=== PATIENT | female | born 1940 | race Caucasian/White ===

== ENCOUNTER 2020-02-28 07:17 | Outpatient (CLI) | payer MEDICARE, BC ==
[~2020-02-28] VITALS: Ht 157.5 cm; Wt 93.6 kg
[2020-02-28 07:40] VITALS: BP 121/58; PULSE 78; TEMP 98.3
[2020-02-28] MEDS ORDERED: PREVACID 15MG15 M1 PO (08:08)
[2020-02-28] MEDS ORDERED: COZAAR100 MG PO (08:09)
[2020-02-28] MEDS ORDERED: ZOLOFT 100MG100 MG PO (08:10)
[2020-02-28] MEDS ORDERED: TOPROL XL 25MG25 MG PO (08:10)
[2020-02-28] MEDS ORDERED: AMBIEN 5MG TABLE5 MG PO (08:11)
[2020-02-28] MEDS ORDERED: DESYREL 50MG50 MG PO (08:11)
[2020-02-28] MEDS ORDERED: ARIMIDEX1 MG PO (08:12)
[2020-02-28] MEDS ORDERED: PROCRIT 4,04 MU/VIAL (08:13)
--- NOTE | 2020-02-28 08:30 | NUR ---
Order recieved for PICC placement. DEEPAK Jaimes aware and preparing for placement. Pt updated that placement will take place prior to bone marrow bx. Ambulatory staff Dimitrios and Yvette, RNs also notified.
[2020-02-28 10:16] VITALS: BP 126/52; PULSE 79
[2020-02-28 10:20] VITALS: BP 131/48; PULSE 73
[2020-02-28 10:21] LABS: HEMATOCRIT 20.8 % (37.0-47.0); MEAN CELL VOLUME 100 fl (80.0-100.0); MEAN CORPUSCULAR HEMOGLOBIN 32 pg (27.0-31.0); MEAN CORPUSCULAR HGB CONC 32 g/dl (33.0-37.0); RED BLOOD COUNT 2.08 M/mm3 (4.10-5.30); REDCELL DISTRIBUTION WIDTH-CV 19.9 % (11.5-14.5)
[2020-02-28 10:29] LABS: PLATELET COUNT 31 K/mm3 (130-400)
--- NOTE | 2020-02-28 10:31 | NUR ---
GREGG,FROM LAB CALLED AND REPORTE SH RERAN PLATELET COUNT AND GOT 31.I ATTEMPTED TO CALL MADDI CHEEK AT OFFICE TO REPORT CHANGE.WILL AWAIT CALLBACK.
[2020-02-28 10:35] VITALS: BP 135/47; PULSE 71
[2020-02-28 10:50] VITALS: BP 137/55; PULSE 71
--- NOTE | 2020-02-28 11:05 | NUR ---
Pt assisted to son's car by wheelchair. PICC line remains in place, and Ubaldo wrap in place for protection. Son updated on home care instructions. Packet containing discharge instructions and PICC information sent with pt, she is aware of what information needs to be given to staff at [facility]. Pt will be going there next for previously scheduled blood transfusion.
[2020-02-28 11:08] LABS: SCHISTOCYTES 1+
[2020-02-28 11:09] LABS: PLATELET ESTIMATE DECREASED (NORMAL); TEAR DROP CELLS 1+
[2020-02-28 11:48] LABS: ANISOCYTOSIS 2+; BAND 20 % (0-10); EOSINOPHIL 1 % (0-4); NEUTROPHILS 22 % (42.0-75.2); NUCLEATED RED BLOOD CELL 2 (0-6)
[2020-02-28 11:49] LABS: LYMPHOCYTE 36 % (20.0-51.0)
[2020-02-28 12:10] LABS: HEMOGLOBIN 6.7 g/dl (12.5-16.0)
== END 2020-02-28 11:05 | disposition home or self-care (01) ==
LOC: EUO 07:17
PROVIDERS: Pathology Anatomic Pathology & Clinical Pathology
DX: C50.412 Malignant neoplasm of upper-outer quadrant of left female breast (principal)
CPT/HCPCS: C1751; J2704; J7120